=== PATIENT | male | born 1950 | race Caucasian/White ===

== ENCOUNTER 2017-10-23 08:01 | Day surgery (SDC) | payer BC ==
[~2017-10-23] VITALS: Ht 180.3 cm; Wt 81.2 kg
[~2017-10-23 08:01] MED LIST: ACET325; ALBU90OI INH; ALBU90OI6 INH; ALEVE220 MG; ALEVE220 MG PO; ASCO500; AZIT250 PO; CEPH500; CETI10 PO; FAMO20 PO; HYDCOR1TC; Norco 5-325 Ta1 EACH PO; OXYACE5T PO; PRED20 PO; PROM25 PO; RANI150 PO; Vitamin C100 M1 PO
== END 2017-10-23 10:55 | disposition home or self-care (01) ==
LOC: ORSCMMR 08:01
PROVIDERS: Surgery
PROC: 0DBM8ZX Excision of Descending Colon, Via Natural or Artificial Opening Endoscopic, Diagnostic (ICD-10-PCS; principal; 2017-10-23 09:30)
PROC: 0DBP8ZX Excision of Rectum, Via Natural or Artificial Opening Endoscopic, Diagnostic (ICD-10-PCS; principal; 2017-10-23 09:30)
PROC: 0DB58ZX Excision of Esophagus, Via Natural or Artificial Opening Endoscopic, Diagnostic (ICD-10-PCS; principal; 2017-10-23 09:30)
DX: K21.9 Gastro-esophageal reflux disease without esophagitis (principal); K22.10 Ulcer of esophagus without bleeding; K44.9 Diaphragmatic hernia without obstruction or gangrene; D12.8 Benign neoplasm of rectum; K63.5 Polyp of colon; Z12.11 Encounter for screening for malignant neoplasm of colon; Z85.038 Personal history of other malignant neoplasm of large intestine; Z86.010 Personal history of colon polyps; Z87.891 Personal history of nicotine dependence; Z79.899 Other long term (current) drug therapy
CPT/HCPCS: 88305; 88312; J7120

== ENCOUNTER 2023-09-21 23:21 | Inpatient (IN) | payer BC, MEDICARE ==
[~2023-09-21] VITALS: Ht 177.8 cm; Wt 86.0 kg
[~2023-09-21 23:21] MED LIST changes: +OMEP20ER PO
[2023-09-21 23:46] LABS: Hematocrit 49.6 % (37.0-53.0); Hemoglobin 17.3 g/dL (13.5-17.5); Mean Corpuscular HGB 34.2 pg (26.0-34.0); Mean Corpuscular HGB Conc 34.9 g/dL (31.5-36.5); Mean Corpuscular Volume 98 fL (80-100); Mean Platelet Volume 10.3 fL (9.1-12.4); Platelet Count 280 K/mm3 (150-400); RDW Coefficient Variation 13.1 % (11.7-14.2); RDW Standard Deviation 47.1 fL (35.1-46.3); Red Blood Cell Count 5.06 M/mm3 (4.30-5.90); White Blood Cell Count 9.46 K/mm3 (4.00-11.30)
[2023-09-21 23:58] LABS: Magnesium, Blood 2.1 mg/dL (1.6-2.4)
[2023-09-21 23:59] LABS: Albumin, Blood 3.7 g/dL (3.4-5.0); Albumin/Globulin Ratio 0.9 (0.8-1.8); Bilirubin, Total 0.4 mg/dL (0.1-1.0); Bun/Creatinine Ratio 10.9 (12.0-20.0); Calcium, Blood 9.4 mg/dL (8.5-10.1); Creatinine, Blood 0.83 mg/dL (0.60-1.20); Total Protein, Blood 7.7 g/dL (6.4-8.2)
[2023-09-22 00:25] LABS: BASOPHILS PERCENT MAN 0 % (0-2); EOSINOPHILS PERCENT MAN 0 % (0-6); LYMPHOCYTES % ATYPICAL MANUAL 1 % (0-0); LYMPHOCYTES ABSOLUTE MAN 4.91 K/mm3 (0.84-5.20); LYMPHOCYTES PERCENT MAN 51 % (21-46); MONOCYTES ABSOLUTE MAN 1.04 K/mm3 (0.16-1.47); MONOCYTES PERCENT MAN 11 % (4-13); SEG NEUTROPHILS PERCENT MAN 37 % (41-73); TOTAL CELLS COUNTED 100
[2023-09-22 00:28] LABS: International Normalized Ratio 1.04; Prothrombin Time Results 10.9 Sec (9.7-11.5)
[2023-09-22] MEDS ORDERED: ONDA4 PO (04:20)
[2023-09-22 06:38] LABS: BASOPHILS ABSOLUTE AUTO 0.07 K/mm3 (0.00-0.23); BASOPHILS PERCENT AUTO 1 % (0-2); EOSINOPHILS ABSOLUTE AUTO 0.05 K/mm3 (0.00-0.68); EOSINOPHILS PERCENT AUTO 1 % (0-6); Hematocrit 45.9 % (37.0-53.0); Hemoglobin 16.1 g/dL (13.5-17.5); IMMATURE GRAN ABSOLUTE AUTO 0.03 K/mm3 (0.00-0.10); IMMATURE GRAN PERCENT AUTO 1 % (0-1); LYMPHOCYTES ABSOLUTE AUTO 1.39 K/mm3 (0.84-5.20); LYMPHOCYTES PERCENT AUTO 21 % (21-46); MONOCYTES ABSOLUTE AUTO 0.55 K/mm3 (0.16-1.47); MONOCYTES PERCENT AUTO 8 % (4-13); Mean Corpuscular HGB Conc 35.1 g/dL (31.5-36.5); Mean Corpuscular Volume 97 fL (80-100); Mean Platelet Volume 10.3 fL (9.1-12.4); NEUTROPHILS ABSOLUTE AUTO 4.54 K/mm3 (1.96-9.15); NEUTROPHILS PERCENT AUTO 68 % (41-73); Platelet Count 237 K/mm3 (150-400); RDW Coefficient Variation 13.1 % (11.7-14.2); RDW Standard Deviation 46.8 fL (35.1-46.3); Red Blood Cell Count 4.73 M/mm3 (4.30-5.90); White Blood Cell Count 6.63 K/mm3 (4.00-11.30)
[2023-09-22 06:55] LABS: Albumin, Blood 3.3 g/dL (3.4-5.0); Bilirubin, Total 0.4 mg/dL (0.1-1.0); Bun/Creatinine Ratio 10.4 (12.0-20.0); Calcium, Blood 8.8 mg/dL (8.5-10.1); Creatinine, Blood 0.77 mg/dL (0.60-1.20); Globulin, Blood 3.2 g/dL (2.2-4.0); Potassium, Blood 3.8 mmol/L (3.5-5.5); Total Protein, Blood 6.5 g/dL (6.4-8.2)
[2023-09-22 08:26] VITALS: BP 165/100
--- NOTE | 2023-09-22 16:52 | NUR ---
NOTE PT AWAKE AND LAERT. PRE MEDCIATED WITH TIVAN FOR MRI. PT TOLERATED WELL. RESULTS FOR ECHO, MRI AND CAROTID U/S RECEIVED. PT UP WITH 1 ASSIST AND FWW. BP ELEVATED. DR GOLDMAN RELATED TO ALLOW FOR PERMISSIVE HTN TONIGHT. PLAN TO DISCAHRGE TOMORROW AFTER STARTING ANTI HTN. PT IS A DAILY ALCOHOL DRINKER. BEER TO BE ON HIS TRAY WITH EACH MEAL. NO S/S OF W/D. VOIDING PER URINAL. DENIED PAIN. HIS LEFT UE NUMB WITH LIMITED FINE MOTOR. CARE ONGOING.
[2023-09-22 16:54] VITALS: BP 156/101
[2023-09-22 19:30] VITALS: BP 153/97
[2023-09-23 04:49] VITALS: BP 166/100
[2023-09-23 06:01] LABS: BASOPHILS ABSOLUTE AUTO 0.06 K/mm3 (0.00-0.23); BASOPHILS PERCENT AUTO 1 % (0-2); EOSINOPHILS ABSOLUTE AUTO 0.21 K/mm3 (0.00-0.68); EOSINOPHILS PERCENT AUTO 3 % (0-6); Hematocrit 45.9 % (37.0-53.0); Hemoglobin 15.9 g/dL (13.5-17.5); IMMATURE GRAN ABSOLUTE AUTO 0.03 K/mm3 (0.00-0.10); IMMATURE GRAN PERCENT AUTO 0 % (0-1); LYMPHOCYTES ABSOLUTE AUTO 1.56 K/mm3 (0.84-5.20); LYMPHOCYTES PERCENT AUTO 22 % (21-46); MONOCYTES ABSOLUTE AUTO 0.76 K/mm3 (0.16-1.47); MONOCYTES PERCENT AUTO 11 % (4-13); Mean Corpuscular HGB Conc 34.6 g/dL (31.5-36.5); Mean Corpuscular Volume 98 fL (80-100); Mean Platelet Volume 10.3 fL (9.1-12.4); NEUTROPHILS ABSOLUTE AUTO 4.64 K/mm3 (1.96-9.15); NEUTROPHILS PERCENT AUTO 64 % (41-73); Platelet Count 227 K/mm3 (150-400); RDW Coefficient Variation 13.1 % (11.7-14.2); RDW Standard Deviation 46.5 fL (35.1-46.3); Red Blood Cell Count 4.68 M/mm3 (4.30-5.90); White Blood Cell Count 7.26 K/mm3 (4.00-11.30)
[2023-09-23 06:26] LABS: Bun/Creatinine Ratio 13.3 (12.0-20.0); Creatinine, Blood 0.9 mg/dL (0.60-1.20); Potassium, Blood 3.6 mmol/L (3.5-5.5)
--- NOTE | 2023-09-23 06:42 | NUR ---
Shift Summary Pt has L sided weakness, is in the room and assisting him with needs. BP is elevated which is accpetable for now, permessive htn. Plan for d/c today with BP meds. Pt is AOx4, speaks clearly, cooperative with care.
[2023-09-23 09:58] LABS: Source, Urine Clean Catch
[2023-09-23 10:10] LABS: Appearance, Urine Clear (Clear); Bilirubin, Urine Neg (Neg); Blood, Urine 2+ (Neg); Color, Urine Yellow (P-Yellow); Glucose Qualitative, Urine Neg (Neg); Ketones, Urine Neg (Neg); Leukocyte Esterase, Urine Neg (Neg); Nitrite, Urine Neg (Neg); Protein, Urine Neg (Neg); Specific Gravity, Urine 1.015 (1.003-1.022); Urobilinogen, Urine NORM (Normal)
[2023-09-23 10:40] VITALS: BP 146/96
[2023-09-23 12:31] LABS: Amorphous Light (0-Heavy); Bacteria Few /hpf; Squamous Epithelial Cells Rare /hpf (Few)
[2023-09-23 12:32] LABS: Hyaline Casts 0-2 /lpf (0-2)
[2023-09-23] MEDS ORDERED: AMLO5 PO (14:52)
[2023-09-23] MEDS ORDERED: LISI20 PO (14:53)
[2023-09-23] MEDS ORDERED: ASPI81CH PO (14:53)
[2023-09-23] MEDS ORDERED: CLOP75 PO (14:53)
[2023-09-23] MEDS ORDERED: ATOR40TA PO (14:53)
== END 2023-09-23 16:02 | disposition home or self-care (01) | DRG 65 ==
LOC: ER 23:21 → MEDS 23:22
PROVIDERS: Internal Medicine; Student in an Organized Health Care Education/Training Program; ADMIT Student in an Organized Health Care Education/Training Program
DX: I63.9 Cerebral infarction, unspecified (principal); G81.94 Hemiplegia, unspecified affecting left nondominant side; R29.810 Facial weakness; I10 Essential (primary) hypertension; R29.702 NIHSS score 2; J44.9 Chronic obstructive pulmonary disease, unspecified; Z85.038 Personal history of other malignant neoplasm of large intestine; Z88.0 Allergy status to penicillin; Z91.041 Radiographic dye allergy status
CPT/HCPCS: 36415; 70450; 70551; 80048; 80053; 81001; 83735; 84443; 85025; 85610; 92610; 93005; 93010; 93306; 93880; 96372; 96374; 96375; 96376; 97110; 97116; 97161; 97165; 97535; 99285-25; A9270; G0378; J1650; J2060; J2405

== ENCOUNTER 2024-07-28 06:28 | Day surgery (SDC) | payer BC ==
[2024-07-28] VITALS (13 sets, daily range): BP systolic 91–130; BP diastolic 57–78
[~2024-07-28] VITALS: Ht 175 cm; Wt 82.0 kg
[~2024-07-28 06:28] MED LIST changes: +AMLO5 PO; +ASPI81CH PO; +ATOR40TA PO; +CLOP75 PO; +LISI20 PO; +ONDA4 PO
[2024-07-28] MEDS ORDERED: Acetaminophen 500 MG Tab PO SCH ×2 (06:40→16:00)
[2024-07-28] MEDS ORDERED: OxyCODONE HCL 10 MG TABCR PO SCH (06:40)
[2024-07-28] MEDS ORDERED: Lactated Ringer's 1,000 ML IV SCH ×2 (06:40→08:10)
[2024-07-28] MEDS ORDERED: Chlorhexidine Mouth Care 15 ML UDC MT SCH (06:40)
[2024-07-28] MEDS ORDERED: CeFAZolin Sodium 2,000 MG in NS 100 ML IV SCH ×2 (06:40→16:00)
[2024-07-28] MEDS ORDERED: Ropivacaine 0.5% HCl/Pf 123.125 MG,EPINEPHrine HCL 0.25 MG,Ketorolac Tromethamine 15 MG... INFIL SCH (06:40)
[2024-07-28] MEDS ORDERED: Tranexamic Acid 100 ML IV SCH (06:45)
[2024-07-28] MEDS ORDERED: STIOLTO RESPIMAT4 G1 INH (07:34)
[2024-07-28] MEDS ORDERED: Midazolam HCl 1MG / ML 2ML Vial IV ONE (07:45)
[2024-07-28] MEDS ORDERED: propofoL 100 ML IV ONE (07:54)
[2024-07-28] MEDS ORDERED: OxyCODONE HCL 5 MG TAB PO PRN ×2 (08:05)
[2024-07-28] MEDS ORDERED: Promethazine HCl 25 MG Tab PO PRN (08:05)
[2024-07-28] MEDS ORDERED: Ondansetron 4 MG TAB PO PRN (08:05)
[2024-07-28] MEDS ORDERED: Ondansetron HCl 2 MG / ML 2ML Vial IV PRN (08:10)
[2024-07-28] MEDS ORDERED: HYDROmorphone HCl/Pf 1MG SYR IV PRN (08:10)
[2024-07-28] MEDS ORDERED: FLU VACC TS2024-25(6MOS UP)/PF 45 MCG/0.5 ML SYRINGE IM PRN (08:10)
[2024-07-28] MEDS ORDERED: Magnesium Hydroxide Conc 10 ML UDC PO PRN (08:10)
[2024-07-28] MEDS ORDERED: Metoclopramide HCl 5MG / ML 2ML Vial IV PRN (08:10)
[2024-07-28] MEDS ORDERED: DiphenhydrAMINE HCL 25 MG Cap PO PRN (08:15)
[2024-07-28] MEDS ORDERED: Bisacodyl 10 MG Supp PR PRN (08:15)
[2024-07-28] MEDS ORDERED: Misc. Inhaler INH SCH (08:30)
[2024-07-28] MEDS ORDERED: Docusate Sodium 100 MG Cap PO SCH (09:00)
[2024-07-28] MEDS ORDERED: Atorvastatin 40 MG Tab PO SCH (09:00)
[2024-07-28] MEDS ORDERED: Lisinopril 20 MG Tab PO SCH (09:00)
[2024-07-28] MEDS ORDERED: AmLODIPine Besylate 5 MG Tab PO SCH (09:00)
[2024-07-28] MEDS ORDERED: propofoL 20 ML IV ONE (09:31)
[2024-07-28] MEDS ORDERED: Phenylephrine HCl 10mg/ml 1 ml Vial ONE (09:31)
[2024-07-28] MEDS ORDERED: Lactated Ringer's 1,000 ML IV ONE (10:08)
--- NOTE | 2024-07-28 10:40 | NUR ---
ARRIVAL TO SURGICAL UNIT VIA HOSPITAL BED. ASSESSMENT CHARTED. DENIES PAIN OR N/V. SNACKS & DRINKS OFFERED; NOT INTERESTED IN ANYTHING BUT SIPS OF WATER. WISHES TO REST/NAP. FAMILY AT SIDE.
[2024-07-28] MEDS ORDERED: Ketorolac Tromethamine 15mg Vial IV SCH (12:00)
--- NOTE | 2024-07-28 19:15 | NUR ---
SHIFT SUMMARY PT HAS DONE WELL POST OP. PAIN WELL CONTROLLED. WORKED w/ THERAPY. EATING, DRINKING, VOIDING. PLEASANT & COOPERATIVE. SURG SITE WNL.
[2024-07-29 00:22] VITALS: BP 137/74
[2024-07-29 04:59] VITALS: BP 104/69
[2024-07-29 05:18] LABS: BASOPHILS ABSOLUTE AUTO 0.06 K/mm3 (0.00-0.23); BASOPHILS PERCENT AUTO 1 % (0-2); EOSINOPHILS ABSOLUTE AUTO 0.26 K/mm3 (0.00-0.68); EOSINOPHILS PERCENT AUTO 3 % (0-6); Hemoglobin 10.8 g/dL (13.5-17.5); IMMATURE GRAN ABSOLUTE AUTO 0.04 K/mm3 (0.00-0.10); IMMATURE GRAN PERCENT AUTO 1 % (0-1); LYMPHOCYTES ABSOLUTE AUTO 1.37 K/mm3 (0.84-5.20); LYMPHOCYTES PERCENT AUTO 16 % (21-46); MONOCYTES ABSOLUTE AUTO 0.69 K/mm3 (0.16-1.47); MONOCYTES PERCENT AUTO 8 % (4-13); Mean Corpuscular HGB 33.5 pg (26.0-34.0); Mean Corpuscular HGB Conc 34.8 g/dL (31.5-36.5); Mean Corpuscular Volume 96 fL (80-100); Mean Platelet Volume 10.5 fL (9.1-12.4); NEUTROPHILS ABSOLUTE AUTO 6.18 K/mm3 (1.96-9.15); NEUTROPHILS PERCENT AUTO 72 % (41-73); Platelet Count 221 K/mm3 (150-400); RDW Coefficient Variation 12.7 % (11.7-14.2); Red Blood Cell Count 3.22 M/mm3 (4.30-5.90)
[2024-07-29 05:43] LABS: Bun/Creatinine Ratio 12.7 (12.0-20.0); Calcium, Blood 8.8 mg/dL (8.5-10.1); Creatinine, Blood 1.1 mg/dL (0.60-1.20); Potassium, Blood 4.3 mmol/L (3.5-5.5)
[2024-07-29] MEDS ORDERED: Omeprazole 20 MG CapCR PO SCH (06:00)
--- NOTE | 2024-07-29 06:30 | NUR ---
SHIFT SUMMARY POD 1 R TKA PT RESTED FOR MOST OF SHIFT. PAIN MANAGED PER EMAR. TOLERATING PO INTAKE, VOIDING. DRESSING TO R KNEE IS C/D/I. PT UP TO THE BATHROOM WITH 1P ASST FWW AND GB. DENIES N/T TO LE'S, ABLE TO WIGGLE TOES. POLAR PAC ON ALL NIGHT. VSS. NO OTHER CONCNERNS AT THIS TIME, CALL LIGHT WITHIN REACH
[2024-07-29 07:18] VITALS: BP 134/83
[2024-07-29] MEDS ORDERED: Apixaban 5 MG Tab PO SCH (09:00)
--- NOTE | 2024-07-29 10:15 | NUR ---
DISCHARGE: PT CLEARED BY THERAPY. WALKING, VOIDING AND PAIN MANAGED. VSS. DC PACKET PRINTED AND PT EDUCATED. IV DC'D BY CHIEF OF HOSPITAL MEDICINE. PT LEFT UNIT VIA WHEELCHAIR AT 1010 WITH ALENA Harris
== END 2024-07-29 10:11 | disposition home or self-care (01) ==
LOC: ORSCMMR 06:28 → ORD 08:00 → ORSCMMR 08:00 → SURS 10:23 → ORSCMMR 07-29 10:11
PROVIDERS: Orthopaedic Surgery
DX: M17.11 Unilateral primary osteoarthritis, right knee (principal); I10 Essential (primary) hypertension; Z86.73 Personal history of transient ischemic attack (TIA), and cerebral infarction without residual deficits; Z79.899 Other long term (current) drug therapy; Z79.82 Long term (current) use of aspirin; J44.9 Chronic obstructive pulmonary disease, unspecified; Z79.02 Long term (current) use of antithrombotics/antiplatelets
CPT/HCPCS: 36415; 73560-RT; 80048; 82947; 85025; 97110; 97116; 97162; A9270; C1776; J0171; J0690; J0735; J1885; J2250; J2371; J2405; J2704; J2795; J7120

== ENCOUNTER 2024-09-20 06:10 | Day surgery (SDC) | payer BC ==
[~2024-09-20] VITALS: Ht 177.8 cm; Wt 78.5 kg
[~2024-09-20 06:10] MED LIST changes: +ST. JOSEPH ASPI81 MG PO; +STIOLTO RESPIMAT4 G1 INH
[2024-09-20] MEDS ORDERED: Lactated Ringer's 1,000 ML IV SCH (06:15)
[2024-09-20] MEDS ORDERED: propofoL 50 ML IV ONE (06:20)
[2024-09-20] MEDS ORDERED: Dexamethasone Sod Phos 10 MG/ML 1ML VIAL ONE (06:27)
[2024-09-20] MEDS ORDERED: Ondansetron HCl 2 MG / ML 2ML Vial ONE ×2 (06:27→07:00)
[2024-09-20] MEDS ORDERED: Lidocaine HCl 2% 20 ML MDV ONE (06:27)
[2024-09-20] MEDS ORDERED: Ketorolac Tromethamine 30mg Vial ONE (06:27)
[2024-09-20 06:30] VITALS: BP 140/82
--- NOTE | 2024-09-20 06:46 | NUR ---
Ambulatory in Day Surgery History, Chart, Medications and Allergies reviewed before start of procedure. Pre-Op teaching done. Pt verbalizes understanding. Patient States Post-Procedure ride home has been arranged.
[2024-09-20] MEDS ORDERED: Metoclopramide HCl 5MG / ML 2ML Vial ONE (07:01)
[2024-09-20] MEDS ORDERED: FentaNYL Citrate 50 MCG/ML 2 ML Injection ONE (07:26)
[2024-09-20 07:55] VITALS: BP 125/78
--- NOTE | 2024-09-20 08:03 | NUR ---
XRAY TO DAY SURGERY. PT RESPONDS TO VOICE, OPENS EYES, NODS, NO C/O PAIN. RESTS QUIETLY WHEN UNDISTURBED.
[2024-09-20 08:07] VITALS: BP 124/83
[2024-09-20 08:22] VITALS: BP 128/93
--- NOTE | 2024-09-20 08:29 | NUR ---
Discharge instructions reviewed with patient. Patient verbalizes understanding. Copy given to patient to take home. Patient States Post-Procedure ride home has been arranged. Discharged via wheelchair to private car for ride home.
== END 2024-09-20 08:35 | disposition home or self-care (01) ==
LOC: ORSCMMR 06:10 → ORD 07:30 → ORSCMMR 08:35
PROVIDERS: Orthopaedic Surgery
PROC: 0SSCXZZ Reposition Right Knee Joint, External Approach (ICD-10-PCS; principal; 2024-09-20 07:30)
DX: M24.661 Ankylosis, right knee (principal); T84.82XA Fibrosis due to internal orthopedic prosthetic devices, implants and grafts, initial encounter; Z96.651 Presence of right artificial knee joint; I10 Essential (primary) hypertension; J44.9 Chronic obstructive pulmonary disease, unspecified; K21.9 Gastro-esophageal reflux disease without esophagitis; Z86.73 Personal history of transient ischemic attack (TIA), and cerebral infarction without residual deficits; Z79.01 Long term (current) use of anticoagulants; Z79.899 Other long term (current) drug therapy; Z79.82 Long term (current) use of aspirin
CPT/HCPCS: 73560-RT; J1100; J1885; J2405; J2704; J2765; J3010; J7120